=== PATIENT | female | born 1960 | race Caucasian/White ===

== ENCOUNTER → 2020-12-04 | Outpatient (CLI) | payer OTHER | LOC: RAD 13:59 | DX: R06.00 Dyspnea, unspecified (principal) | CPT/HCPCS: 71046 ==

== ENCOUNTER → 2021-01-11 | Outpatient (CLI) | payer OTHER | LOC: EMI 15:07 | DX: M75.102 Unspecified rotator cuff tear or rupture of left shoulder, not specified as traumatic (principal); S46.812A Strain of other muscles, fascia and tendons at shoulder and upper arm level, left arm, initial encounter | CPT/HCPCS: 73221 ==

== ENCOUNTER → 2021-03-13 | Outpatient (CLI) | payer OTHER ==
[~2021-03-13] MED LIST: CETIRIZINE HCL10 MG PO; COLACE 100MG C100 MG PO; CYMBALTA20 MG PO; FAMOTIDINE20 MG PO; HYDROCHLOROTHIA25 MG PO; HYDROCODONE-AC1 EAC1 PO; HYDROXYZINE HCL25 MG PO; LEXAPRO10 MG PO; LISINOPRIL40 MG PO; LOPRESSOR50 MG PO; METFORMIN HCL500 MG PO; MOBIC15 MG PO; NEURONTIN300 MG PO; ROPINIROLE HCL0.5 MG PO; VITAMIN B12 PO; VITAMIN D21250 MCG PO; ZOCOR20 MG PO
[2021-03-13 10:09] LABS: HEMOGLOBIN 12.7 gm/dl (12.3-15.3); RED BLOOD COUNT 4.27 M/UL (4.00-5.10); WHITE BLOOD COUNT 7.6 K/UL (4.5-11.0)
[2021-03-13 10:29] LABS: BUN/CREATININE RATIO 25 (0-10)
== END ==
LOC: OPSV2 03-11 11:30
PROVIDERS: Orthopaedic Surgery
DX: Z01.818 Encounter for other preprocedural examination (principal); M75.102 Unspecified rotator cuff tear or rupture of left shoulder, not specified as traumatic
CPT/HCPCS: 80048; 85027; 93005

== ENCOUNTER → 2021-03-22 | Day surgery (SDC) | payer OTHER | END | disposition home or self-care (01) | LOC: OR 03-11 07:30 | DX: M75.52 Bursitis of left shoulder (principal); S43.432A Superior glenoid labrum lesion of left shoulder, initial encounter; M75.112 Incomplete rotator cuff tear or rupture of left shoulder, not specified as traumatic; I10 Essential (primary) hypertension; E78.5 Hyperlipidemia, unspecified; E11.9 Type 2 diabetes mellitus without complications; F41.9 Anxiety disorder, unspecified; Z98.51 Tubal ligation status; Z90.49 Acquired absence of other specified parts of digestive tract; Z79.84 Long term (current) use of oral hypoglycemic drugs; Z88.5 Allergy status to narcotic agent; Z20.822 Contact with and (suspected) exposure to COVID-19; E66.01 Morbid (severe) obesity due to excess calories; K58.9 Irritable bowel syndrome, unspecified | CPT/HCPCS: 82962; C1713; J0171; J0592; J0690; J1100; J1170; J2001; J2250; J2704; J2710; J2795; J3010; J7120 ==

== ENCOUNTER 2021-08-24 13:07 | Emergency (ER) | payer OTHER ==
[2021-08-24] MEDS ORDERED: CYCLOBENZAPRINE10 MG PO (16:02)
== END 2021-08-24 16:30 | disposition home or self-care (01) ==
LOC: ER1 13:07
DX: M54.41 Lumbago with sciatica, right side (principal); G89.29 Other chronic pain; E11.9 Type 2 diabetes mellitus without complications; I10 Essential (primary) hypertension; Z88.8 Allergy status to other drugs, medicaments and biological substances; Z79.84 Long term (current) use of oral hypoglycemic drugs
CPT/HCPCS: 96372; 99283; J1170

== ENCOUNTER → 2021-09-27 | Outpatient (CLI) | payer OTHER ==
[~2021-09-27] MED LIST changes: +CYCLOBENZAPRINE10 MG PO
== END ==
LOC: KOH-I 08:57
DX: M51.26 Other intervertebral disc displacement, lumbar region (principal)
CPT/HCPCS: 72148

== ENCOUNTER 2021-11-07 18:38 | Emergency (ER) | payer OTHER | END 2021-11-07 20:45 | disposition home or self-care (01) | LOC: ER1 18:38 | DX: M54.50 Low back pain, unspecified (principal); I10 Essential (primary) hypertension; E11.9 Type 2 diabetes mellitus without complications; Z88.6 Allergy status to analgesic agent; Z88.5 Allergy status to narcotic agent | CPT/HCPCS: 96372; 99283; J2270; J3360 ==

== ENCOUNTER 2021-11-10 11:45 | Emergency (ER) | payer OTHER ==
[2021-11-10] MEDS ORDERED: TORADOL 10 MG T10 MG PO (12:19)
== END 2021-11-10 13:02 | disposition home or self-care (01) ==
LOC: ER1 11:45
DX: M54.41 Lumbago with sciatica, right side (principal); E11.9 Type 2 diabetes mellitus without complications; I10 Essential (primary) hypertension; Z88.8 Allergy status to other drugs, medicaments and biological substances
CPT/HCPCS: 96372; 99283; J1100; J1885